=== PATIENT | male | born 1970 | race Caucasian/White ===

== ENCOUNTER → 2016-10-10 | Outpatient (CLI) | payer OTHER ==
--- NOTE | 2016-10-10 18:40 | REP ---
Clinical: Trauma. Technique: AP, lateral, bilateral oblique and sunrise views. Findings: The osseous structures and joint spaces are intact and normal for age. There is no evidence for acute fracture or dislocation. No joint effusion is appreciated. Surrounding soft tissues are unremarkable. No subcutaneous emphysema or radiodense foreign body. Impression: Age-appropriate left knee radiograph series. No acute fracture or dislocation. Signed by Jeevan Arteaga MD 10/10/2016 06:32 P
== END ==
LOC: M ADAMS 17:54
PROVIDERS: ATTEND Physician Assistant Medical
DX: M25.562 Pain in left knee (principal)

== ENCOUNTER → 2017-01-29 | Outpatient (REF) | payer OTHER ==
[2017-01-29 14:01] LABS: FOLATE > 24.0 NG/ML (>5.4); VITAMIN B12 LEVEL 744 PG/ML (247-911)
[2017-01-29 14:02] LABS: TOTAL PROTEIN 7.5 GM/DL (6.4-8.2)
[2017-01-30 13:00] LABS: ALBUMIN 4.66 GM/DL (3.29-5.55); ALBUMIN % 62.1 % (55.8-66.1); GAMMA GLOBULIN % 15.3 % (11.1-18.8)
== END ==
LOC: M LABDRWAD 12:11
PROVIDERS: ATTEND Psychiatry & Neurology Neurology
DX: G60.3 Idiopathic progressive neuropathy (principal)

== ENCOUNTER → 2017-10-15 | Outpatient (REF) | payer OTHER ==
[2017-10-15 12:46] LABS: BASO # 0.1 10^3/uL (0.0-0.2); BASO % 0.9 % (0.0-1.0); EOS # 0.2 10^3/uL (0.0-0.50); EOS % 2.9 % (0.0-3.0); HEMATOCRIT 47.3 % (42.0-52.0); HEMOGLOBIN 16.3 g/dl (13.5-17.5); IMMATURE GRANULOCYTE % 0.2 % (0-3.0); LYMPH # 2.5 10^3/uL (1.5-4.5); LYMPH % 42.5 % (24.0-44.0); MEAN CORPUSCULAR HEMOGLOBIN 30.9 pg (27.0-33.0); MEAN CORPUSCULAR HGB CONC 34.5 g/dl (32.0-36.5); MEAN CORPUSCULAR VOLUME 89.6 fl (80.0-96.0); MONO # 0.5 10^3/uL (0.0-0.8); MONO % 8.5 % (0.0-5.0); NEUTROPHILS # 2.6 10^3/uL (1.8-7.7); PLATELET COUNT, AUTOMATED 187 10^3/uL (150-450); RED BLOOD COUNT 5.28 10^6/uL (4.30-6.10); RED CELL DISTRIBUTION WIDTH 11.9 % (11.5-14.5); WHITE BLOOD COUNT 5.8 10^3/uL (4.0-10.0)
[2017-10-15 12:54] LABS: TOTAL 25(OH) VITAMIN D 30.2 NG/ML (30.0-100.0)
[2017-10-15 13:27] LABS: ALBUMIN 4.1 GM/DL (3.2-5.2); ALBUMIN/GLOBULIN RATIO 1.21 (1.00-1.93); ALKALINE PHOSPHATASE 68 U/L (45-117); ALT/SGPT 76 U/L (12-78); ANION GAP 7 MEQ/L (8-16); AST/SGOT 35 U/L (7-37); BILIRUBIN,TOTAL 0.5 MG/DL (0.2-1.0); BLOOD UREA NITROGEN 14 MG/DL (7-18); CARBON DIOXIDE LEVEL 26 MEQ/L (21-32); CHLORIDE LEVEL 108 MEQ/L (98-107); CHOLESTEROL LEVEL 170 MG/DL (<200); CHOLESTEROL RISK RATIO 6.296 (<5); GLOMERULAR FILTRATION RATE > 60.0 (>60); GLUCOSE, FASTING 124 MG/DL (70-100); HDL CHOLESTEROL 27 MG/DL (>40); LDL CHOLESTEROL 96.2 MG/DL (<100); NON-HDL-C 143 MG/DL; POTASSIUM SERUM 4.3 MEQ/L (3.5-5.1); SODIUM LEVEL 141 MEQ/L (136-145); TOTAL PROTEIN 7.5 GM/DL (6.4-8.2); TRIGLYCERIDES LEVEL 234 MG/DL (<150)
== END ==
LOC: M SFHCADAM 07:56
DX: Z00.00 Encounter for general adult medical examination without abnormal findings (principal); J45.20 Mild intermittent asthma, uncomplicated; G47.9 Sleep disorder, unspecified

== ENCOUNTER 2017-10-25 17:12 | Emergency (ER) | payer OTHER ==
[2017-10-25 18:57] LABS: KETONE, URINE AUTO RFX NEGATIVE (NEGATIVE); LEUKOCYTE ESTERASE UR AUTO RFX NEGATIVE (NEGATIVE); MUCUS, URINE RFX SMALL (NEGATIVE); NITRITE, URINE AUTO RFX NEGATIVE (NEGATIVE); RBC, URINE AUTO RFX 1 /HPF (0-3); SPECIFIC GRAVITY UR AUTO RFX 1.008 (1.002-1.035); SQUAM EPITHELIAL CELL UR AURFX 0 /HPF (0-6); WBC, URINE AUTO RFX 0 /HPF (0-3)
[2017-10-25 19:37] LABS: BASO # 0.1 10^3/uL (0.0-0.2); BASO % 0.6 % (0.0-1.0); EOS # 0.1 10^3/uL (0.0-0.50); EOS % 1.6 % (0.0-3.0); HEMATOCRIT 42.6 % (42.0-52.0); HEMOGLOBIN 15.1 g/dl (13.5-17.5); IMMATURE GRANULOCYTE % 0.5 % (0-3.0); LYMPH # 3.7 10^3/uL (1.5-4.5); LYMPH % 42.8 % (24.0-44.0); MEAN CORPUSCULAR HEMOGLOBIN 30.9 pg (27.0-33.0); MEAN CORPUSCULAR HGB CONC 35.4 g/dl (32.0-36.5); MEAN CORPUSCULAR VOLUME 87.1 fl (80.0-96.0); MONO # 0.9 10^3/uL (0.0-0.8); MONO % 9.7 % (0.0-5.0); NEUTROPHILS # 3.9 10^3/uL (1.8-7.7); NEUTROPHILS % 44.8 % (36.0-66.0); PLATELET COUNT, AUTOMATED 186 10^3/uL (150-450); RED BLOOD COUNT 4.89 10^6/uL (4.30-6.10); RED CELL DISTRIBUTION WIDTH 11.5 % (11.5-14.5); WHITE BLOOD COUNT 8.7 10^3/uL (4.0-10.0)
[2017-10-25 19:55] LABS: ALBUMIN 4.1 GM/DL (3.2-5.2); ALBUMIN/GLOBULIN RATIO 1.17 (1.00-1.93); ALKALINE PHOSPHATASE 82 U/L (45-117); ALT/SGPT 60 U/L (12-78); ANION GAP 8 MEQ/L (8-16); AST/SGOT 26 U/L (7-37); BILIRUBIN,DIRECT 0.1 MG/DL (0.0-0.2); BILIRUBIN,TOTAL 0.6 MG/DL (0.2-1.0); BLOOD UREA NITROGEN 17 MG/DL (7-18); CALCIUM LEVEL 8.6 MG/DL (8.5-10.1); CARBON DIOXIDE LEVEL 26 MEQ/L (21-32); CHLORIDE LEVEL 106 MEQ/L (98-107); CREATININE FOR GFR 1.04 MG/DL (0.70-1.30); GLOMERULAR FILTRATION RATE > 60.0 (>60); GLUCOSE, FASTING 151 MG/DL (70-100); POTASSIUM SERUM 3.9 MEQ/L (3.5-5.1); SODIUM LEVEL 140 MEQ/L (136-145); TOTAL PROTEIN 7.6 GM/DL (6.4-8.2)
[2017-10-25 19:56] LABS: INR 1.02; PROTHROMBIN TIME 13.5 SECONDS (12.4-14.5)
[2017-10-25] MEDS: APIXABAN 5 MG TAB (ELIQUIS) PO (20:25)
== END 2017-10-25 20:40 | disposition home or self-care (01) ==
LOC: M ED 17:12
DX: I82.432 Acute embolism and thrombosis of left popliteal vein (principal); Z79.899 Other long term (current) drug therapy; Z79.82 Long term (current) use of aspirin; Z79.01 Long term (current) use of anticoagulants
CPT/HCPCS: 80076

== ENCOUNTER → 2017-12-12 | Outpatient (CLI) | payer OTHER | LOC: M ADAMS 09:15 | DX: M79.642 Pain in left hand (principal) | CPT/HCPCS: 73130 ==

== ENCOUNTER → 2018-03-20 | Outpatient (CLI) | payer OTHER | LOC: M SLEEP 19:49 | DX: G47.30 Sleep apnea, unspecified (principal) | CPT/HCPCS: 95810 ==

== ENCOUNTER → 2018-05-05 | Outpatient (REF) | payer OTHER | LOC: M SFHCADAM 15:38 | DX: J30.89 Other allergic rhinitis (principal); I82.432 Acute embolism and thrombosis of left popliteal vein | CPT/HCPCS: 85302 ==

== ENCOUNTER → 2018-05-30 | Outpatient (REF) | payer OTHER ==
[2018-06-09 14:09] LABS: ANTI THROMBIN 3 ANTIGEN IMMUNO 88 % (72-124); ANTI THROMBIN 3 FUNCT ACTIVITY 120 % (75-135); APTT 31.7 sec (.); Anticardiolipin Ab, IgA <10 APL (.); DRVTT Confirm Seconds 32.3 sec (.); DRVTT Ratio 1.5 ratio (.); DRVTT Screen Seconds 49.8 sec (.); PROTEIN C ANTIGEN 96 % (60-150); PROTEIN C FUNCTIONAL ACTIVITY 127 % (73-180); PROTEIN C RESISTANCE ACTIVATED 2.4 ratio (2.2-3.5); PROTEIN S ANTIGEN FREE 104 % (57-157); PROTEIN S ANTIGEN TOTAL 93 % (60-150); PROTEIN S FUNCTIONAL ACTIVITY 73 % (63-140)
== END ==
LOC: M SFHCADAM 16:04
DX: Z86.718 Personal history of other venous thrombosis and embolism (principal)
CPT/HCPCS: 85302

== ENCOUNTER → 2018-07-25 | Outpatient (REF) | payer OTHER ==
[~2018-07-25] MED LIST: ADVA115A INH; ASPI-222 PO; CETI10TA PO; ELIQ5TAB PO; MULT1TAB10 PO; SING10TA32 PO; VITATAB11 PO; ZINC30CA PO; allergy shot; astelin
[2018-07-25 13:45] LABS: INR 1.07
[2018-07-27 00:06] LABS: CARDIOLIPIN IGA ANTIBODY <9 APL U/mL (0-11); CARDIOLIPIN IGG ANTIBODY <9 GPL U/mL (0-14); CARDIOLIPIN IGM ANTIBODY 14 MPL U/mL (0-12)
[2018-07-29 10:42] LABS: DRVV SCREEN 61.9 SEC
[2018-07-29 10:53] LABS: PTT LUPUS TYPE ANTICOAG SCREEN 1.5 (0-1.2)
[2018-07-29 11:00] LABS: DRVV CONFIRM 59.8 SEC; LUPUS CONFIRM RATIO 1.5
== END ==
LOC: M SFHCADAM 09:05
PROVIDERS: ATTEND Physician Assistant Medical
DX: D68.61 Antiphospholipid syndrome (principal)
CPT/HCPCS: 85610; 85613; 85730; 86147; G0463

== ENCOUNTER → 2018-07-29 | Outpatient (REF) | payer OTHER ==
[2018-07-29 13:07] LABS: INR 1.01; PROTHROMBIN TIME 13.4 SECONDS (12.1-14.4)
== END ==
LOC: M SFHCADAM 07:56
PROVIDERS: ATTEND Physician Assistant Medical
DX: Z86.718 Personal history of other venous thrombosis and embolism (principal)

== ENCOUNTER → 2018-08-05 | Outpatient (REF) | payer OTHER ==
[2018-08-05 13:05] LABS: INR 1.36
== END ==
LOC: M SFHCADAM 12:15
PROVIDERS: ATTEND Physician Assistant Medical
DX: Z86.718 Personal history of other venous thrombosis and embolism (principal)

== ENCOUNTER → 2018-08-10 | Outpatient (CLI) | payer OTHER | LOC: M ADAMS 15:32 | PROVIDERS: ATTEND Physician Assistant Medical | DX: Z00.00 Encounter for general adult medical examination without abnormal findings (principal); D68.61 Antiphospholipid syndrome ==

== ENCOUNTER → 2018-08-10 | Outpatient (REF) | payer OTHER ==
[~2018-08-10] MED LIST changes: +ASTE0.15 NARES; +EPIP0.3I2 IM; +FISH1000 PO; +PROAAER10; +VITA1CAP25 PO; +WARF-23
[2018-08-10 17:24] LABS: BASO # 0.1 10^3/uL (0.0-0.2); BASO % 0.8 % (0.0-1.0); EOS # 0.4 10^3/uL (0.0-0.50); EOS % 4.9 % (0.0-3.0); HEMATOCRIT 44.5 % (42.0-52.0); HEMOGLOBIN 15.6 g/dl (13.5-17.5); LYMPH # 3.1 10^3/uL (1.5-4.5); LYMPH % 44.3 % (24.0-44.0); MEAN CORPUSCULAR HEMOGLOBIN 31.4 pg (27.0-33.0); MEAN CORPUSCULAR HGB CONC 35.1 g/dl (32.0-36.5); MEAN CORPUSCULAR VOLUME 89.5 fl (80.0-96.0); MONO # 0.5 10^3/uL (0.0-0.8); MONO % 6.8 % (0.0-5.0); NEUTROPHILS # 3.1 10^3/uL (1.8-7.7); NEUTROPHILS % 43.1 % (36.0-66.0); PLATELET COUNT, AUTOMATED 201 10^3/uL (150-450); RED BLOOD COUNT 4.97 10^6/uL (4.30-6.10); WHITE BLOOD COUNT 7.1 10^3/uL (4.0-10.0)
[2018-08-10 17:36] LABS: INR 2.41; PROTHROMBIN TIME 26.7 SECONDS (12.1-14.4)
[2018-08-10 18:02] LABS: HEMOGLOBIN A1c 6.6 %
[2018-08-11 05:42] LABS: ALT/SGPT 33 U/L (12-78); BILIRUBIN,TOTAL 0.3 MG/DL (0.2-1.0); BLOOD UREA NITROGEN 14 MG/DL (7-18); CALCIUM LEVEL 8.3 MG/DL (8.5-10.1); CARBON DIOXIDE LEVEL 25 MEQ/L (21-32); CHLORIDE LEVEL 105 MEQ/L (98-107); CHOLESTEROL LEVEL 180 MG/DL (<200); FREE T4 0.87 NG/DL (0.76-1.46); GLOMERULAR FILTRATION RATE > 60.0 (>60); GLUCOSE, FASTING 139 MG/DL (70-100); HDL CHOLESTEROL 25 MG/DL (>40); NON-HDL-C 155 MG/DL; SODIUM LEVEL 140 MEQ/L (136-145); TOTAL PROTEIN 7.3 GM/DL (6.4-8.2); TRIGLYCERIDES LEVEL 637 MG/DL (<150)
[2018-08-11 09:49] LABS: TOTAL 25(OH) VITAMIN D 28.3 NG/ML (30.0-100.0)
== END ==
LOC: M SFHCADAM 14:33
PROVIDERS: ATTEND Physician Assistant Medical
DX: Z00.00 Encounter for general adult medical examination without abnormal findings (principal); D68.61 Antiphospholipid syndrome

== ENCOUNTER → 2018-08-18 | Outpatient (REF) | payer OTHER ==
[~2018-08-18] MED LIST changes: -ASTE0.15 NARES; -EPIP0.3I2 IM; -FISH1000 PO; -PROAAER10; -VITA1CAP25 PO; -WARF-23
[2018-08-18 17:27] LABS: INR 4.15; PROTHROMBIN TIME 41.2 SECONDS (12.1-14.4)
== END ==
LOC: M SFHCADAM 14:28
PROVIDERS: ATTEND Physician Assistant Medical
DX: D68.61 Antiphospholipid syndrome (principal)
CPT/HCPCS: 85610; G0463

== ENCOUNTER → 2018-09-11 | Outpatient (REF) | payer OTHER ==
[~2018-09-11] MED LIST changes: +ASTE0.15 NARES; +EPIP0.3I2 IM; +FISH1000 PO; +PROAAER10; +VITA1CAP25 PO; +WARF-23
== END ==
LOC: M LAB REF 12:46
PROVIDERS: ATTEND Internal Medicine Hematology & Oncology
DX: Z13.9 Encounter for screening, unspecified (principal); Z79.01 Long term (current) use of anticoagulants

== ENCOUNTER → 2018-09-12 | Outpatient (REF) | payer OTHER | LOC: M LAB REF 12:47 | PROVIDERS: ATTEND Internal Medicine Hematology & Oncology | DX: Z13.9 Encounter for screening, unspecified (principal) ==

== ENCOUNTER → 2018-09-13 | Outpatient (REF) | payer OTHER | LOC: M LAB REF 12:49 | PROVIDERS: ATTEND Internal Medicine Hematology & Oncology | DX: Z13.9 Encounter for screening, unspecified (principal) ==

== ENCOUNTER → 2018-11-13 | Outpatient (CLI) | payer OTHER ==
[2018-11-13 13:15] LABS: IMMUNOGLOBULIN E 30.3 IU/ML (<100); IMMUNOGLOBULIN M 87.4 MG/DL (40-230)
[2018-11-21 08:06] LABS: ALPHA 1 ANTITRYPSIN 119 mg/dL (90-200); D001-IgE D pteronyssinus <0.10 kU/L (Class 0); E001-IgE Cat Epith/Dander < 0.10 kU/L (Class 0); E005-IgE Dog Dander < 0.10 kU/L (Class 0); F004-IgE Wheat < 0.10 kU/L (Class 0); F013-IgE Peanut 0.54 kU/L (Class I); F014-IgE Soybean < 0.10 kU/L (Class 0); F026-IgE Pork < 0.10 kU/L (Class 0); F027-IgE Beef < 0.10 kU/L (Class 0); F245-IgE Egg, Whole 0.23 kU/L (Class 0/I); FX02-IgE Food Mix (Sea Foods) Negative (.); G002-IgE Bermuda Grass < 0.10 kU/L (Class 0); G008-IgE Kentucky Bluegrass < 0.10 kU/L (Class 0); M001-IgE Penicillium chrysogen < 0.10 kU/L (Class 0); M002 IgE Cladosporium herbaru < 0.10 kU/L (Class 0); M003 IgE Aspergillus fumigatu < 0.10 kU/L (Class 0); M006-IgE Alternaria alternata < 0.10 kU/L (Class 0); T001-IgE Maple/Box Elder 0.43 kU/L (Class I); T006-IgE Cedar, Mountain < 0.10 kU/L (Class 0); T007-IgE Oak, White 5.45 kU/L (Class IV); T008-IgE Elm, American 0.16 kU/L (Class 0/I); T015-IgE Ash, White < 0.10 kU/L (Class 0); T041-IgE Hickory, White 0.23 kU/L (Class 0/I); T070-IgE White Mulberry < 0.10 kU/L (Class 0); W001-IgE Ragweed, Short 0.13 kU/L (Class 0/I); W014-IgE Pigweed, Rough < 0.10 kU/L (Class 0); W018-IgE Sheep Sorrel < 0.10 kU/L (Class 0)
== END ==
LOC: M LABDRWAD 08:49
PROVIDERS: ATTEND Allergy & Immunology
DX: J30.1 Allergic rhinitis due to pollen (principal); J30.81 Allergic rhinitis due to animal (cat) (dog) hair and dander; J30.89 Other allergic rhinitis
CPT/HCPCS: 36415; 82103; 82784; 82785; 85610; 86003; 86160; G0463

== ENCOUNTER → 2019-02-05 | Outpatient (REF) | payer OTHER ==
[~2019-02-05] MED LIST changes: +D3400TAB PO; +DOXY100T16 PO; +MULTCAP PO; +PRED20TA PO; +RA B1TAB8 PO; -WARF-23; +WARF-23 PO
[2019-02-05 13:12] LABS: ALBUMIN 3.7 GM/DL (3.2-5.2); ALT/SGPT 106 U/L (12-78); BILIRUBIN,TOTAL 0.6 MG/DL (0.2-1.0); BLOOD UREA NITROGEN 22 MG/DL (7-18); CALCIUM LEVEL 8.6 MG/DL (8.5-10.1); CARBON DIOXIDE LEVEL 27 MEQ/L (21-32); CHLORIDE LEVEL 104 MEQ/L (98-107); CREATININE FOR GFR 1.13 MG/DL (0.70-1.30); GLOMERULAR FILTRATION RATE > 60.0 (>60); GLUCOSE, FASTING 282 MG/DL (70-100); POTASSIUM SERUM 3.9 MEQ/L (3.5-5.1); SODIUM LEVEL 138 MEQ/L (136-145)
[2019-02-06 10:29] LABS: HEPATITIS B SURFACE ANTIGEN NEGATIVE (NEGATIVE)
[2019-02-06 10:56] LABS: HEPATITIS B CORE ANTIBODY IGM NEGATIVE (NEGATIVE); HEPATITIS C VIRUS ABY INDEX 0.1 INDEX (<0.8)
[2019-02-06 10:59] LABS: HEPATITIS A ANTIBODY IGM NEGATIVE (NEGATIVE)
== END ==
LOC: M SFHCADAM 07:48
PROVIDERS: ATTEND Physician Assistant Medical
DX: R94.5 Abnormal results of liver function studies (principal)
CPT/HCPCS: 80053; 85610; 86705; 86709; 86803; 87340; G0463

== ENCOUNTER → 2019-02-20 | Outpatient (CLI) | payer OTHER ==
[~2019-02-20] MED LIST changes: -ASPI-222 PO; +ASPI-527 PO; -DOXY100T16 PO; +DOXY100T27 PO
--- NOTE | 2019-02-20 07:57 | REP ---
Clinical: Elevated liver function tests. Technique: Real time miles scale ultrasound examination using curved array transducer. Findings: The liver is increased in size and echogenicity with poor through transmission suggesting fatty infiltration. Liver measures approximately 20 cm in craniocaudal length. No focal hepatic lesion identified. Pancreas is normal. Gallbladder is unremarkable and without gallstones, wall thickening, or pericholecystic fluid. No biliary ductal dilatation is appreciated and the common bile duct measures 4.5 mm diameter. Right kidney is normal in reniform shape without hydronephrosis and measures 6.6 x 12.1 x 5.2 cm. No ascites. Impression: Hepatic steatosis. Electronically Signed by Jeevan Arteaga MD 02/20/2019 07:48 A
== END ==
LOC: M RAD 07:03
PROVIDERS: ATTEND Physician Assistant Medical
DX: K76.0 Fatty (change of) liver, not elsewhere classified (principal)

== ENCOUNTER → 2019-03-25 | Outpatient (CLI) | payer OTHER ==
[~2019-03-25] MED LIST changes: +DOXY100T16 PO; -DOXY100T27 PO
--- NOTE | 2019-03-25 10:31 | REP ---
CT of the sinuses without contrast Indication: Chronic pansinusitis. Comparison: CT maxillofacial bones of 11/11/2008. Technique: Axial CT of the maxillofacial bones were performed without contrast. Findings: Frontal sinuses: Clear bilaterally. Ethmoid air cells: There is a 7 mm mucous retention cyst within the left anterior ethmoid air cells. Remaining left and right ethmoid air cells are clear. Sphenoid sinuses: Clear bilaterally. The sphenoid septum inserts on the midline. Maxillary sinuses: Prior antrostomies. There is mild mucosal thickening of the right maxillary sinus. Nasal passages and septum: Nasal septum is midline. Nasal passages are clear. Turbinates are unremarkable. Mastoid air cells: Clear bilaterally. Other: The cribriform plate is intact. Impression: Prior antrostomies. Mild mucosal thickening of the right maxillary sinus and 7 mm mucous retention cyst within the left anterior air cells. Electronically Signed by Kulwant Hanley MD 03/25/2019 10:23 A
== END ==
LOC: M RAD 09:37
PROVIDERS: ATTEND Otolaryngology
DX: J32.9 Chronic sinusitis, unspecified (principal)

== ENCOUNTER → 2019-08-19 | Outpatient (REF) | payer OTHER ==
[~2019-08-19] MED LIST changes: -DOXY100T16 PO; +DOXY100T27 PO
[2019-08-19 19:31] LABS: HEMOGLOBIN A1c 8.8 %
== END ==
LOC: M SFHCADAM 15:51
PROVIDERS: ATTEND Family Medicine
DX: E11.9 Type 2 diabetes mellitus without complications (principal)
CPT/HCPCS: 83036; 85610; G0463

== ENCOUNTER → 2019-11-13 | Outpatient (REF) | payer OTHER ==
[~2019-11-13] MED LIST changes: +ATOR40TA75 PO; +AZEL0.055 NARES; +TRUL10IN SUBQ; +VITA500079 PO
== END ==
LOC: M LAB REF 18:19
PROVIDERS: ATTEND Dermatology
DX: D22.5 Melanocytic nevi of trunk (principal)
CPT/HCPCS: 11102; 88305; 88342; G0463

== ENCOUNTER → 2020-07-04 | Outpatient (CLI) | payer SELFPAY | LOC: M LABSMTC 10:12 | PROVIDERS: ATTEND Pediatrics | DX: Z20.828 Contact with and (suspected) exposure to other viral communicable diseases (principal) ==

== ENCOUNTER → 2021-07-11 | Outpatient (CLI) | payer OTHER | LOC: M WUC 11:12 | PROVIDERS: ATTEND Nurse Practitioner Family | DX: R05.1 Acute cough (principal); R06.02 Shortness of breath ==

== ENCOUNTER → 2022-08-16 | Outpatient (CLI) | payer OTHER | LOC: M RAD 08:16 | PROVIDERS: ATTEND Internal Medicine | DX: R94.5 Abnormal results of liver function studies (principal) ==